=== PATIENT | male | born 1960 | race Caucasian/White ===

== ENCOUNTER 2025-06-16 09:12 | Inpatient (IN) ==
--- NOTE | 2025-06-16 10:09 | Emergency Department Note ---
Impression & Plan Acute renal failure, Acute Lyme disease ED Provider Note Name: MIC HUBER Age: 65 Sex: Male Arrives Via: Walk-In Informant: Patient ED Provider: Doug Stewart MD Chief Complaint: Illness Impression: As per impressions above Medical Decision Making: Pleasant 65-year-old gentleman with a history of hypertension, dyslipidemia for evaluation of severe worsening of 1 week fevers, chills, body aches, dry heaving and not eating. Arrives from PCP office. Patient appears severely dehydrated on arrival. He is ordered 2 L of fluid. Laboratory workup remarkable for significant creatinine elevation. Lyme disease is positive. Other labs consistent with severe dehydration and illness. That said patient does not appear to have severe sepsis or septic shock but rather is primarily just severely dehydrated. He was given fluids as well as some IV antibiotics after obtaining blood cultures. Triage/Nursing Notes reviewed by Me External Chart Review by me: Reviewed a PCP note from earlier today discussing patient's past medical history along with his recent illness. Differential:Viral syndrome, tick borne, pneumonia, influenza, meningitis, urinary tract infection, sepsis, bacteremia, as well as other pathologies. Vital Signs: reviewed and remarkable for no significant abnormalities Interventions: Normal saline bolus 2 L IV, Rocephin IV, doxycycline IV Labs:ED labs Reviewed by me and remarkable for acute renal failure Imagin view chest x-ray as per my interpretation no infiltrate or effusion appreciated EKG:As per my interpretation. Indication weakness. Normal sinus rhythm at 78 bpm with PVC noted. QTc is 399. There is no overt ischemia. There are no previous EKGs for comparison Cardiac/Tele Monitoring: Cardiac Monitoring: An Order was placed for continuous cardiac monitoring. The monitor shows a rate of 70 with a normal sinus rhythm. Consults:Discussed with hospital service who will further evaluate and manage Plan: Disposition:Hospitalization. Condition: Fair History of Present Illness: 65-year-old gentleman arrives for evaluation of illness. Patient notes that he has been sick for the last week. Chills, fevers to 101 and generalized bodyaches. Notes associated nausea with periodic dry heaving. States he has had no appetite. Extreme exhaustion on top of this. Denies any headache, neck pain, nuchal rigidity. Denies any syncope, chest pain, shortness of breath, abdominal pain. He said decreased urination which is dark. No diarrhea. He has really not eaten anything in the last several days. He has a history of Lyme disease few years ago requiring ED visit and fluids. He was seen by his PCP who diagnosed him with dehydration and advised to be evaluated in the ER given the degree. He was started on doxycycline yesterday for presumed Lyme infection. He has had 2 doses. Past Medical History:See Below Home Medications:See Below Allergies:nkda Vitals:Blood Pressure: 111/61, Pulse 78, RR 20, T 36.1C, O2 98% on RA Physical Exam: GENERAL: Patient is ill/dehydrated appearing and in moderate distress. RESPIRATORY: No dyspnea. Clear to auscultation and equal bilaterally. CARDIOVASCULAR: Regular rate and rhythm.No murmur appreciated. GASTROINTESTINAL: Abdomen soft, non-tender, no peritonitis. EXTREMITIES: Normal motion all extremities, no cyanosis, no edema. NEUROLOGIC: Alert and oriented. No focal neurologic deficits appreciated SKIN: No rash, no jaundice, no diaphoresis. PSYCH: Appropriate GCS: 15 ED Course: Times/Reassessments: vastly improved with IV fluids. Doug Stewart MD Past Med/Surg History Problem List (Updated 06/16/25 @ 17:06 by Doug Stewart MD) Acute Lyme disease (Acute) Acute renal failure (Acute) Body aches Fever (Acute) Fatigue Tick bite of ankle Encounter for health maintenance examination in adult Hyperlipidemia Hypertension Prediabetes Medical History (Updated 06/16/25 @ 17:06 by Doug Stewart MD) Inguinal hernia Tubular adenoma of colon Hemorrhoids, internal External hemorrhoids Shingles Surgical History History of colonoscopy Family History Brother Colorectal cancer Mother Diabetes Hypertension Father Prostate cancer Myocardial infarction Denies family history of Ovarian cancer Breast cancer Social History (Updated 10/16/24 @ 09:05 by Rasheeda Alfonso LPN) Smoking Status: Never smoker Tobacco Type: Cigarettes Age Started Using Tobacco: 16; packs per day: 0.5; Cigarettes Per Day: smokes off and on; Second Hand Exposure: No; Do You Dip or Chew Tobacco: No; Hx Alcohol Use: No Hx Substance Use: No Preferred Language: Algerian Visual Impairment: No Limitations Hearing Ability: Normal marital status: Current Living Situation: Spouse current occupational status: employed How many Children do You have Comment: raising grandchild Feels Safe at Home: Yes Childhood Exposure to Second-Hand Smoke: Yes Diet: regular caffeine: Yes Dental Care, Regularly: No Physical Activity Frequency: 1-2 Times per Week Seatbelt Use: always Sunscreen Use: Yes Assistive Devices: Glasses Allergies Allergies Allergy/AdvReac Type Severity Reaction Status Date / Time No Known Allergies Allergy Verified 06/15/25 13:34 Home Meds Home Medications Medication Instructions Recorded Confirmed aspirin 81 mg tablet,delayed 81 mg PO DAILY 01/12/19 06/16/25 release (Marielena Low Dose Aspirin) acetaminophen 500 mg tablet 0 mg PO UD PRN Pain/fever 06/16/25 06/16/25 ibuprofen 200 mg tablet 0 mg PO UD PRN pain/fever 06/16/25 06/16/25 Previous Rx's Medication Instructions Recorded lisinopril 10 mg tablet 10 mg PO DAILY #90 tabs 10/16/24 doxycycline hyclate 100 mg tablet 100 mg PO BID 21 days #42 tabs 06/15/25 Results & Data (ED) Vital Signs Vital Signs - 24 hr 06/16/25 09:30 06/16/25 10:33 06/16/25 10:35 Temperature 36.1 C L Temperature Source Temporal Artery Scan Pulse Rate 78 72 72 Pulse Rate [Apical] Pulse Rhythm Regular Pulse Rhythm [Apical] Pulse Strength [Apical] Respiratory Rate 20 17 Respiratory Effort / Characteristics Non-Labored Spontaneous Respiratory Depth Normal Respiratory Pattern Regular Blood Pressure 111/61 96/70 L Blood Pressure [Left Arm] Blood Pressure Mean 77 77 Blood Pressure Mean [Left Arm] Blood Pressure Position Sitting Pulse Oximetry 98 Oxygen Delivery Method Sepsis Recent Fever Within 48 Hours No Sepsis New/Unexplained Change in Mental Status No Sepsis Action Taken by Nursing No Action Required 06/16/25 11:00 06/16/25 11:01 06/16/25 11:22 Temperature Temperature Source Pulse Rate 70 67 Pulse Rate [Apical] 72 Pulse Rhythm Pulse Rhythm [Apical] Regular Pulse Strength [Apical] Normal Respiratory Rate 16 18 18 Respiratory Effort / Characteristics Non-Labored Spontaneous Respiratory Depth Normal Respiratory Pattern Regular Blood Pressure 115/76 109/89 Blood Pressure [Left Arm] 109/89 Blood Pressure Mean 81 96 Blood Pressure Mean [Left Arm] 95 Blood Pressure Position Pulse Oximetry 96 100 100 Oxygen Delivery Method Room Air Room Air Room Air Sepsis Recent Fever Within 48 Hours Sepsis New/Unexplained Change in Mental Status Sepsis Action Taken by Nursing 06/16/25 11:30 06/16/25 12:00 06/16/25 12:30 Temperature Temperature Source Pulse Rate 72 84 63 Pulse Rate [Apical] Pulse Rhythm Pulse Rhythm [Apical] Pulse Strength [Apical] Respiratory Rate 18 20 18 Respiratory Effort / Characteristics Respiratory Depth Respiratory Pattern Blood Pressure 122/77 126/76 116/77 Blood Pressure [Left Arm] Blood Pressure Mean 93 93 84 Blood Pressure Mean [Left Arm] Blood Pressure Position Pulse Oximetry 98 98 97 Oxygen Delivery Method Room Air Room Air Room Air Sepsis Recent Fever Within 48 Hours Sepsis New/Unexplained Change in Mental Status Sepsis Action Taken by Nursing 06/16/25 13:00 Temperature Temperature Source Pulse Rate 75 Pulse Rate [Apical] Pulse Rhythm Pulse Rhythm [Apical] Pulse Strength [Apical] Respiratory Rate 20 Respiratory Effort / Characteristics Respiratory Depth Respiratory Pattern Blood Pressure 129/97 Blood Pressure [Left Arm] Blood Pressure Mean 110 Blood Pressure Mean [Left Arm] Blood Pressure Position Pulse Oximetry 98 Oxygen Delivery Method Room Air Sepsis Recent Fever Within 48 Hours Sepsis New/Unexplained Change in Mental Status Sepsis Action Taken by Nursing Laboratory Data 06/16/25 09:50 06/16/25 09:50 Lab Results 06/16/25 06/16/25 06/16/25 Range/Units 09:50 11:02 11:08 WBC 13.85 H (4.8-10.8) K/ul RBC 6.63 H (4.70-6.10) M/uL Hgb 20.8 H (14.0-18.0) g/dl Hct 55.8 H (42.0-52.0) % MCV 84.2 (80.0-100.0) fL MCH 31.4 (25.0-34.0) pg MCHC 37.3 H (32.0-36.0) g/dL RDW Std Deviation 40.8 (36.4-46.3) fL RDW Coeff of Linwood 13.2 (11.5-14.5) % Plt Count 121 L (130-400) K/uL MPV 11.1 (9.4-12.4) fL Neutrophils % (Manual) 52 % Lymphocytes % (Manual) 14 % Reactive Lymphs % (Man) 20 % Monocytes % (Manual) 14 % Neutrophils # (Manual) 7.20 H (1.40-6.50) K/uL Total Absolute Neuts 7.20 H (1.4-6.5) K/uL Lymphocytes # (Manual) 1.94 (1.2-3.4) K/uL Reactive Lymphs # 2.77 K/uL Total Abs Lymphocytes 4.71 H (1.2-3.4) K/uL Monocytes # (Manual) 1.94 H (0.11-0.59) K/uL Toxic Vacuolation 1+ APTT 26 (21-31) Seconds PTT Ratio 1.0 Sodium 130 L (136-145) mmol/L Potassium 4.6 (3.5-5.1) mmol/L Chloride 94 L (98-107) mmol/L Carbon Dioxide 23 (21-32) mmol/L Anion Gap 13 H (3-11) BUN 82 H (6-23) mg/dl Creatinine 3.86 H D (0.6-1.4) mg/dl Est Cr Clr Drug Dosing 16.1 ml/min eGFR 16.52 BUN/Creatinine Ratio 21.2 H (10-20) Glucose 153 H (70-99(Fasting)) mg/dl Lactate 1.5 (0.4-2.0) mmol/L Calcium 10.9 H (8.6-10.3) mg/dl Total Bilirubin 0.9 (0.2-1.0) mg/dl AST 30 (13-39) U/L ALT 29 (7-52) U/L Alkaline Phosphatase 85 (34-104) U/L Total Creatine Kinase 49 (30-223) U/L Troponin I High Sens 7.7 (0-20) pg/ml Total Protein 9.0 H (6.0-8.3) gm/dl Albumin 4.1 (3.4-5.0) gm/dl Globulin 4.9 H (2.5-4.0) gm/dl Albumin/Globulin Ratio 0.8 L (0.9-2) Procalcitonin 0.86 H (0-0.5) ng/ml Nasal Screen MRSA (PCR) (Negative) Anaplasma Smear See Comment Babesia Smear See Comment Lyme Disease Screen Positive H (Negative) Lyme Tier 2 IgG Confirm Positive H (Negative) Lyme Tier 2 IgM Confirm Equivocal H (Negative) 06/16/25 Range/Units 11:58 WBC (4.8-10.8) K/ul RBC (4.70-6.10) M/uL Hgb (14.0-18.0) g/dl Hct (42.0-52.0) % MCV (80.0-100.0) fL MCH (25.0-34.0) pg MCHC (32.0-36.0) g/dL RDW Std Deviation (36.4-46.3) fL RDW Coeff of Linwood (11.5-14.5) % Plt Count (130-400) K/uL MPV (9.4-12.4) fL Neutrophils % (Manual) % Lymphocytes % (Manual) % Reactive Lymphs % (Man) % Monocytes % (Manual) % Neutrophils # (Manual) (1.40-6.50) K/uL Total Absolute Neuts (1.4-6.5) K/uL Lymphocytes # (Manual) (1.2-3.4) K/uL Reactive Lymphs # K/uL Total Abs Lymphocytes (1.2-3.4) K/uL Monocytes # (Manual) (0.11-0.59) K/uL Toxic Vacuolation APTT (21-31) Seconds PTT Ratio Sodium (136-145) mmol/L Potassium (3.5-5.1) mmol/L Chloride (98-107) mmol/L Carbon Dioxide (21-32) mmol/L Anion Gap (3-11) BUN (6-23) mg/dl Creatinine (0.6-1.4) mg/dl Est Cr Clr Drug Dosing ml/min eGFR BUN/Creatinine Ratio (10-20) Glucose (70-99(Fasting)) mg/dl Lactate (0.4-2.0) mmol/L Calcium (8.6-10.3) mg/dl Total Bilirubin (0.2-1.0) mg/dl AST (13-39) U/L ALT (7-52) U/L Alkaline Phosphatase (34-104) U/L Total Creatine Kinase (30-223) U/L Troponin I High Sens (0-20) pg/ml Total Protein (6.0-8.3) gm/dl Albumin (3.4-5.0) gm/dl Globulin (2.5-4.0) gm/dl Albumin/Globulin Ratio (0.9-2) Procalcitonin (0-0.5) ng/ml Nasal Screen MRSA (PCR) Negative (Negative) Anaplasma Smear Babesia Smear Lyme Disease Screen (Negative) Lyme Tier 2 IgG Confirm (Negative) Lyme Tier 2 IgM Confirm (Negative) Administered Medications Lactated Ringer's (Lr) 1,000 mls @ 100 mls/hr IV .Q10H INDIO Stop: 06/19/25 14:07 Last Admin: 06/16/25 14:30 Dose: 100 mls/hr Documented By: CEZAR Discontinued Medications Sodium Chloride (Nss) 1,000 mls @ 999 mls/hr IV .Q1H1M INDIO Stop: 06/16/25 12:15 Last Infusion: 06/16/25 12:59 Dose: Infused Documented By: Admin: 06/16/25 11:51 Dose: 999 mls/hr Documented By: Infusion: 06/16/25 11:34 Dose: Infused Documented By: Admin: 06/16/25 10:33 Dose: 999 mls/hr Documented By: CEF Ceftriaxone Sodium (Rocephin) 2,000 mg in 50 mls @ 100 mls/hr IV NOW STA Stop: 06/16/25 11:18 Last Infusion: 06/16/25 12:59 Dose: Infused Documented By: Admin: 06/16/25 11:51 Dose: 100 mls/hr Documented By: BUDDY Doxycycline Hyclate 100 mg/ (Dextrose) 100 mls @ 50 mls/hr IV NOW STA Stop: 06/16/25 12:48 Last Infusion: 06/16/25 14:17 Dose: Infused Documented By: Admin: 06/16/25 11:51 Dose: 50 mls/hr Documented By: BUDDY Imaging Data Radiologist's Impression: Chest X-Ray 06/16/25 10:46 XR chest 1V portable CLINICAL HISTORY: fever, cough, illness COMPARISON STUDY: 01/12/2019 FINDINGS: Size and pulmonary vasculature are normal. Stable hyperexpanded lungs. No consolidation or pleural effusion. No pneumothorax. IMPRESSION: No pneumonia seen. ACT 112: Negative or not required by law. Electronically signed by: Rashawn Carlton M.D. 06/16/2025 11:30 AM Discharge Plan Visit Data Chief Complaint: Illness Stated Complaint: LYMES DISEASE, DEHYDRATED, BODY ACHES, NOT EATING ED Provider: Doug Stewart Discharge Problem: Acute renal failure, Acute Lyme disease Patient Disposition: Admitted As Inpatient Condition: Fair Discharge Instructions Interventions: ED Discharge Assessment Last Done: 06/16/25 14:09 Discharge Problem: Acute renal failure Qualifiers: Acute renal failure type: unspecified Qualified Code(s): N17.9 - Acute kidney failure, unspecified
[2025-06-16 10:27] LABS: Alanine Aminotransferase 29.0 U/L (7-52); Albumin Globulin Ratio 0.8 (0.9-2); Albumin Level 4.1 gm/dl (3.4-5.0); Alkaline Phosphatase 85.0 U/L (34-104); Anion Gap 13.0 (3-11); Bilirubin,Total 0.9 mg/dl (0.2-1.0); Blood Urea Nitrogen 82.0 mg/dl (6-23); Calcium 10.9 mg/dl (8.6-10.3); Carbon Dioxide 23.0 mmol/L (21-32); Chloride 94.0 mmol/L (98-107); Creatinine Clr Calc Pharmacy 16.1 ml/min; Globulin 4.9 gm/dl (2.5-4.0); Glucose 153.0 mg/dl (70-99(Fasting)); Potassium 4.6 mmol/L (3.5-5.1); Sodium 130.0 mmol/L (136-145); Total Protein 9.0 gm/dl (6.0-8.3)
[2025-06-16 10:33] LABS: Partial Thromboplastin Time 26 Seconds (21-31)
[2025-06-16] MEDS: SODIUM CHLORIDE 0.9% 1,000 ML IV SCH (10:33)
[2025-06-16 11:04] LABS: Hematocrit (blood only) 55.8 % (42.0-52.0); Hemoglobin 20.8 g/dl (14.0-18.0); Mean Corpuscular Hemoglobin 31.4 pg (25.0-34.0); Mean Corpuscular Volume 84.2 fL (80.0-100.0); Platelet Count 121 K/uL (130-400); RDW Standard Deviation 40.8 fL (36.4-46.3); Red Blood Count 6.63 M/uL (4.70-6.10); White Blood Count 13.85 K/ul (4.8-10.8)
[2025-06-16 11:19] LABS: Lyme Screen Rflx Confirmation Positive (Negative)
--- NOTE | 2025-06-16 11:31 | XRay Report ---
XR chest 1V portable CLINICAL HISTORY: fever, cough, illness COMPARISON STUDY: 01/12/2019 FINDINGS: Size and pulmonary vasculature are normal. Stable hyperexpanded lungs. No consolidation or pleural effusion. No pneumothorax. IMPRESSION: No pneumonia seen. ACT 112: Negative or not required by law. Electronically signed by: Rashawn Carlton M.D. 06/16/2025 11:30 AM
[2025-06-16 11:32] LABS: ALC (manual) 4.71 K/uL (1.2-3.4); ANC (manual) 7.20 K/uL (1.4-6.5); Reactive Lymphocytes # (manual) 2.77 K/uL; Reactive Lymphocytes % (manual) 20 %; Toxic Vacuolation 1+
[2025-06-16 11:40] LABS: Creatine Kinase 49.0 U/L (30-223)
[2025-06-16] MEDS: cefTRIAXone SODIUM 2,000 MG/50 ML BAG IV STA (11:51)
[2025-06-16] MEDS: DOXYCYCLINE HYCLATE 100 MG in DEXTROSE 5% MINI-B 100 ML IV STA (11:51)
--- NOTE | 2025-06-16 11:59 | Electrocardiogram Report ---
Test Reason : Blood Pressure : */* mmHG Vent. Rate : 78 BPM Atrial Rate : 78 BPM P-R Int : 118 ms QRS Dur : 90 ms QT Int : 350 ms P-R-T Axes : 70 80 82 degrees QTcB Int : 399 ms Sinus rhythm with occasional Premature ventricular complexes Otherwise normal ECG No previous ECGs available Confirmed by Scooby Ritter ([id number]) on 06/16/2025 11:59:13 AM Referred By: Confirmed By: Scooby Ritter
[2025-06-16 12:55] LABS: Lyme Ab IgG 2nd Tier Confirm Positive (Negative); Lyme Ab IgM 2nd Tier Confirm Equivocal (Negative)
[2025-06-16] MEDS ORDERED: ALUMINUM/MAGNESIUM SUSP 30 ML UDC PO PRN (14:08)
[2025-06-16] MEDS ORDERED: POLYETHYLENE (MIRALAX) 17 GM PACK PO PRN (14:08)
[2025-06-16] MEDS ORDERED: ACETAMINOPHEN 325 MG TAB PO PRN (14:08)
[2025-06-16] MEDS ORDERED: ONDANSETRON INJ 2 MG/ML 2 ML VIAL IV PRN (14:08)
[2025-06-16] MEDS ORDERED: MAGNESIUM HYDROXIDE SUSP 30 ML UDC PO PRN (14:08)
--- NOTE | 2025-06-16 14:28 | Hospitalist Progress Note ---
Date of Service June 16, 2025 Assessment & Plan (1) Body aches: (2) Fever: (3) Lyme disease, acute: (4) Fatigue: (5) Hyperlipidemia: (6) Hypertension: (7) Prediabetes: Plan 65 yrs old male PMH of hyperlipidemia, hypertension, prediabetes and tubular adenoma of colon presents to the ED with bodyache, fever, headache and is admitted for Lyme infection with Acute Kidney Injury. 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 Babesia PCR still pending. - Continue Doxycycline 100mg PO BID for Lyme infection which covers infection with anaplasmosis and Ehrlisiosis too. - Possible doxycycline induced bodyache as he had severe bodyache after taking the medication as well. -CXR shows no consolidation on lungs. - Prescribed Morphine 2gm IV 4hrly as needed for pain. - Will monitor the patient. # Acute Kidney Injury a/w Hypovolemia: - MIKE with Creatinine 3.86, BUN 82 possible hypovolemia induced pre-renal MIKE as patient has not been eating and drinking well because of the acute symptoms. Given 2L of NS at ED and continued RL maintenance fluids. - HB- 20.8 AND HCT 55.8%, possible hemoconcentration from hypovolemia. - Ordered CBC, BMP AM. #Hypertension: -Hold Lisinopril home medication because of hypovolemia. #VTE prophylaxis: No Admission and Anticipated Discharge Date Admission Date: June 16, 2025 Subjective Patient is a pleasant 65 yrs old male accompanied with his presents to the ED because of bodyache, fever, headache for which he went to his PCP on 06/15 and they reported the renal abnormalities and suggested him to visit the ED. His bodyache started since Sunday followed by fever and headache from sunday and he took tylenol and ibuprofen for the pain but the pain got progressively worse by each day. His highest temperature that was recorded was 101F. His last decent meal was on Sunday and he has not been able to eat much, eating only cereal milk and milkshakes and whenever he tries to eat anything else he is having heartburn as well. Reports he took 2 doses of Doxycycline and after taking it he laid to the bed and started having severe left leg cramping to the point that he was shouting with pain. He has a H/o past Lyme infection. He has a history of anaplasmosis and reports recent tick bites without red spots. No H/o neck rigidity, fever on presentation, chest pain, shortness of breath. Review of Systems Review of Systems: As per HPI. Physical Exam Physical Exam: Constitutional: No acute distress, cooperative, appears ill. Eyes: Conjunctiva normal, anicteric sclerae ENMT: Normal TM Bilaterally, oropharynx appears erythematous without exudate or tonsillar swelling, dry mucous membranes Neck. Tracheal midline Respiratory: No cough, normal respiratory effort, LCTAB Cardiovascular: Regular rate, regular rhythm, no murmur, no edema Gastrointestinal: soft, non-tender MSK: Normocephalic, atraumatic Skin: No rashes, warm and dry Neuro: awake, moves all extremities, no focal motor deficits Lymphatics: No post-auricular, no preauricular, no submandibular, no submental, no anterior or posterior chain LAD Results & Data Results & Data Vital Signs (Past 12 Hours) Vital Signs Temp Pulse Pulse Resp BP BP Pulse Ox 06/16/25 12:30 63 18 116/77 97 06/16/25 12:00 84 20 126/76 98 06/16/25 11:30 72 18 122/77 98 06/16/25 11:22 67 18 109/89 100 06/16/25 11:01 70 18 115/76 100 06/16/25 11:00 72 16 109/89 96 06/16/25 10:35 72 06/16/25 10:33 72 17 96/70 L 98 06/16/25 09:30 36.1 C L 78 20 111/61 O2 Del Method 06/16/25 12:30 Room Air 06/16/25 12:00 Room Air 06/16/25 11:30 Room Air 06/16/25 11:22 Room Air 06/16/25 11:01 Room Air 06/16/25 11:00 Room Air 06/16/25 10:35 06/16/25 10:33 06/16/25 09:30 Resident Activity Tracking Resident Involvement: Resident Care Provided Care Provided: Adult Hospital Medicine (2) Fever Fever type: unspecified Qualified Code(s): R50.9 - Fever, unspecified
[2025-06-16] MEDS: LACTATED RINGER'S 1,000 ML IV SCH (14:30)
[2025-06-16] MEDS ORDERED: MoRPHine SULFATE 2 MG/ML CARP IV PRN (14:54)
--- NOTE | 2025-06-16 17:34 | History & Physical Report ---
Date of Service June 16, 2025 Assessment & Plan (1) Body aches: (2) Fever: (3) Lyme disease, acute: (4) Fatigue: (5) Hyperlipidemia: (6) Hypertension: (7) Prediabetes: Plan 65 yrs old male PMH of hyperlipidemia, hypertension, prediabetes and tubular adenoma of colon presents to the ED with bodyache, fever, headache and is admitted for Lyme infection with Acute Kidney Injury. 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 Babesia PCR still pending. - Continue Doxycycline 100mg PO BID for Lyme infection which covers infection with anaplasmosis and Ehrlisiosis too. - Possible doxycycline induced bodyache as he had severe bodyache after taking the medication as well. -CXR shows no consolidation on lungs. - Prescribed Morphine 2gm IV 4hrly as needed for pain. - Will monitor the patient. # Acute Kidney Injury a/w Hypovolemia: - MIKE with Creatinine 3.86, BUN 82 possible hypovolemia induced pre-renal MIKE as patient has not been eating and drinking well because of the acute symptoms. Given 2L of NS at ED and continued RL maintenance fluids. - HB- 20.8 AND HCT 55.8%, possible hemoconcentration from hypovolemia. - Ordered CBC, BMP AM. #Hypertension: -Hold Lisinopril home medication because of hypovolemia. #VTE prophylaxis: No Admission and Anticipated Discharge Date Admission Date: June 16, 2025 History of Present Illness Chief Complaint: Patient is a pleasant 65 yrs old male accompanied with his presents to the ED because of bodyache, fever, headache for which he went to his PCP on 06/15 and they reported the renal abnormalities and suggested him to visit the ED. His bodyache started since Sunday followed by fever and headache from sunday and he took tylenol and ibuprofen for the pain but the pain got progressively worse by each day. His highest temperature that was recorded was 101F. His last decent meal was on Sunday and he has not been able to eat much, eating only cereal milk and milkshakes and whenever he tries to eat anything else he is having heartburn as well. Reports he took 2 doses of Doxycycline and after taking it he laid to the bed and started having severe left leg cramping to the point that he was shouting with pain. He has a H/o past Lyme infection. He has a history of anaplasmosis and reports recent tick bites without red spots. No H/o neck rigidity, fever on presentation, chest pain, shortness of breath. Primary Care Provider: Alexys Gillespie DO Allergies Allergy/AdvReac Type Severity Reaction Status Date / Time No Known Allergies Allergy Verified 06/15/25 13:34 Home Medications Medication Instructions Recorded Confirmed Type aspirin 81 mg tablet,delayed 81 mg PO DAILY 01/12/19 06/16/25 History release (Mareilena Low Dose Aspirin) lisinopril 10 mg tablet 10 mg PO DAILY #90 tabs 10/16/24 06/16/25 Rx doxycycline hyclate 100 mg tablet 100 mg PO BID 21 days #42 tabs 06/15/25 06/16/25 Rx acetaminophen 500 mg tablet 0 mg PO UD PRN Pain/fever 06/16/25 06/16/25 History ibuprofen 200 mg tablet 0 mg PO UD PRN pain/fever 06/16/25 06/16/25 History Past Med/Surg History Problem List (Updated 06/16/25 @ 17:06 by Doug Stewart MD) Acute Lyme disease (Acute) Acute renal failure (Acute) Body aches Fever (Acute) Fatigue Tick bite of ankle Encounter for health maintenance examination in adult Hyperlipidemia Hypertension Prediabetes Medical History (Updated 06/16/25 @ 17:06 by Doug Stewart MD) Inguinal hernia Tubular adenoma of colon Hemorrhoids, internal External hemorrhoids Shingles Surgical History History of colonoscopy Family History Brother Colorectal cancer Mother Diabetes Hypertension Father Prostate cancer Myocardial infarction Denies family history of Ovarian cancer Breast cancer Social History (Updated 10/16/24 @ 09:05 by Rasheeda Alfonso LPN) Smoking Status: Former smoker Tobacco Type: Cigarettes Age Started Using Tobacco: 16; packs per day: 0.5; Cigarettes Per Day: smokes off and on; Second Hand Exposure: No; Do You Dip or Chew Tobacco: No; Hx Alcohol Use: No Hx Substance Use: No Preferred Language: Kyrgyz Communication Ability: Effective Visual Impairment: No Limitations Hearing Ability: Normal Manager Personal Required: No Beliefs That Will Affect Care: None marital status: Current Living Situation: Family current occupational status: employed How many Children do You have Comment: raising grandchild Feels Safe at Home: Yes Safety Concerns: Feels Safe At This Time Childhood Exposure to Second-Hand Smoke: Yes Diet: regular caffeine: Yes Dental Care, Regularly: No Physical Activity Frequency: 1-2 Times per Week Seatbelt Use: always Sunscreen Use: Yes Assistive Devices: None Review of Systems Review of Systems: As per HPI Physical Exam Physical Exam: Constitutional: No acute distress, cooperative, appears ill, appears jama, appears thin Eyes: Conjunctiva normal, anicteric sclerae ENMT: Normal TM Bilaterally, oropharynx appears erythematous without exudate or tonsillar swelling, dry mucous membranes Neck. Tracheal midline Respiratory: No cough, normal respiratory effort, LCTAB Cardiovascular: Regular rate, regular rhythm, no murmur, no edema Gastrointestinal: soft, non-tender MSK: Normocephalic, atraumatic Skin: No rashes, warm and dry Neuro: awake, moves all extremities, no focal motor deficits Results & Data Results & Data Vital Signs (Past 12 Hours) Vital Signs Temp Pulse Pulse Resp BP BP Pulse Ox 06/16/25 17:14 37.0 C 68 17 130/72 97 06/16/25 16:00 79 21 117/78 98 06/16/25 15:00 83 22 115/76 96 06/16/25 14:30 80 20 136/79 97 06/16/25 14:00 81 20 124/82 99 06/16/25 13:00 75 20 129/97 98 06/16/25 12:30 63 18 116/77 97 06/16/25 12:00 84 20 126/76 98 06/16/25 11:30 72 18 122/77 98 06/16/25 11:22 67 18 109/89 100 06/16/25 11:01 70 18 115/76 100 06/16/25 11:00 72 16 109/89 96 06/16/25 10:35 72 06/16/25 10:33 72 17 96/70 L 98 06/16/25 09:30 36.1 C L 78 20 111/61 O2 Del Method 06/16/25 17:14 Room Air 06/16/25 16:00 Room Air 06/16/25 15:00 Room Air 06/16/25 14:30 06/16/25 14:00 Room Air 06/16/25 13:00 Room Air 06/16/25 12:30 Room Air 06/16/25 12:00 Room Air 06/16/25 11:30 Room Air 06/16/25 11:22 Room Air 06/16/25 11:01 Room Air 06/16/25 11:00 Room Air 06/16/25 10:35 06/16/25 10:33 06/16/25 09:30 Code Status & VTE Plan VTE Prophylaxis Plan VTE Prophylaxis will be ordered: No Supervising Physician Co-Signing Physician Notes I personally examined the patient and verified craig points of history and exam, discussed case, and agree with decision making and plan documented by Dr. Feliz. Patient is a 65-year-old male with past medical history of hypertension, hyperlipidemia, and prediabetes presenting with multiple days of fever, body aches, and overall malaise. He was seen at his PCPs office 06/15/2025 and started on doxycycline for presumed tick borne illness. Patient on admission for dehydration, acute renal failure, in setting of presumed lyme disease with equivocal IgM. On exam patient appears comfortable, non diaphoretic, conjunctiva clear, mucosa moist, non-labored breathing, lungs clear to auscultation bilaterally, no rales/rhonchi/wheezing, heart with regular rate and rhythm, no murmur appreciated, bowel sounds present and no tenderness in the abdomen, lower extremities without edema, no calf tenderness. Patient on doxcycline and fluids. VSS. Monitor kidney function closely and avoid nephrotoxins. Resident Activity Tracking Resident Involvement: Resident Care Provided Care Provided: Adult Hospital Medicine (2) Fever Fever type: unspecified Qualified Code(s): R50.9 - Fever, unspecified
[2025-06-16 18:48] LABS: Anion Gap 10.0 (3-11); Blood Urea Nitrogen 67.0 mg/dl (6-23); Calcium 9.4 mg/dl (8.6-10.3); Carbon Dioxide 20.0 mmol/L (21-32); Chloride 103.0 mmol/L (98-107); Creatinine Clr Calc Pharmacy 29.4 ml/min; Glucose 114.0 mg/dl (70-99(Fasting)); Potassium 4.1 mmol/L (3.5-5.1); Sodium 133.0 mmol/L (136-145)
[2025-06-16] MEDS: DOXYCYCLINE HYCLATE 100 MG CAP PO SCH (20:50)
[2025-06-16] MEDS: MELATONIN 3 MG TAB PO PRN (20:50)
[2025-06-17 07:05] LABS: Anion Gap 7.0 (3-11); Blood Urea Nitrogen 49.0 mg/dl (6-23); Calcium 8.9 mg/dl (8.6-10.3); Carbon Dioxide 22.0 mmol/L (21-32); Chloride 107.0 mmol/L (98-107); Creatinine Clr Calc Pharmacy 47.6 ml/min; Potassium 3.9 mmol/L (3.5-5.1); Sodium 136.0 mmol/L (136-145)
[2025-06-17 07:12] LABS: Hematocrit (blood only) 44.7 % (42.0-52.0); Hemoglobin 16.0 g/dl (14.0-18.0); Mean Corpuscular Hemoglobin 30.0 pg (25.0-34.0); Mean Corpuscular Volume 83.9 fL (80.0-100.0); Platelet Count 117 K/uL (130-400); RDW Standard Deviation 40.4 fL (36.4-46.3); Red Blood Count 5.33 M/uL (4.70-6.10); White Blood Count 10.46 K/ul (4.8-10.8)
[2025-06-17] MEDS: ASPIRIN 81 MG ECTAB PO SCH (08:22)
[2025-06-17 08:47] LABS: ALC (manual) 5.02 K/uL (1.2-3.4); ANC (manual) 4.08 K/uL (1.4-6.5); Polychromasia 1+; Reactive Lymphocytes # (manual) 2.20 K/uL; Reactive Lymphocytes % (manual) 21 %
[2025-06-17] MEDS ORDERED: MoRPHine SULFATE 4 MG/ML 1 ML CARP\\VIAL IV PRN (09:06)
[2025-06-17 10:27] LABS: Smudge Cells Present
--- NOTE | 2025-06-17 10:54 | Hospitalist Progress Note ---
Date of Service June 17, 2025 Assessment & Plan (1) Body aches: (2) Fever: (3) Lyme disease, acute: (4) Fatigue: (5) Hyperlipidemia: (6) Hypertension: (7) Prediabetes: Plan 65 yrs old male PMH of hyperlipidemia, hypertension, prediabetes and tubular adenoma of colon presents to the ED with bodyache, fever, headache and is admitted for Lyme infection with Acute Kidney Injury. 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 - Lyme IgG positive with IgM equivocal with past history of lyme infection with negative Anaplasma and Babesia smear. Babesia PCR still pending. - Continue Doxycycline 100mg PO BID for Lyme infection which covers infection with anaplasmosis and Ehrlisiosis too. - Possible doxycycline induced bodyache as he had severe bodyache after taking the medication as well. -CXR shows no consolidation on lungs. - Prescribed Morphine 2gm IV 4hrly as needed for pain. - Possible discharge home tomorrow if he continues to feel well. # Acute Kidney Injury a/w Hypovolemia: - MIKE with Creatinine 3.86-> 1.31, BUN 82->49 possible hypovolemia induced pre- renal MIKE as patient has not been eating and drinking well because of the acute symptoms. Given 2L of NS at ED and continued RL maintenance fluids. - HB- 20.8 AND HCT 55.8%, possible hemoconcentration from hypovolemia. - Ordered CBC, BMP AM. #Hypertension: -Hold Lisinopril home medication because of hypovolemia. #VTE prophylaxis: No Admission and Anticipated Discharge Date Admission Date: June 16, 2025 Supervising Physician Co-Signing Physician Notes I personally examined the patient and verified craig points of history and exam, discussed case, and agree with decision making and plan documented by Dr. Feliz. Recovery of MIKE with hydration. Patient exhausted. Continue doxycycline and consider discharge tomorrow if patient continues clinical improvement. Subjective Patient was sleeping comfortably on bed this morning, He is relieved that his severe bodyache, headache and fever is all resolved but he does reports he still feels tired and wishes his energy would be back to normal again. No H/o fever, headache, chest pain, bradycardia, hematuria. Review of Systems Review of Systems: As per HPI Physical Exam Physical Exam: Constitutional: No acute distress, cooperative, appears ill, appears jama, appears thin Eyes: Conjunctiva normal, anicteric sclerae ENMT: Normal TM Bilaterally, oropharynx appears erythematous without exudate or tonsillar swelling, dry mucous membranes Neck. Tracheal midline Respiratory: No cough, normal respiratory effort, LCTAB Cardiovascular: Regular rate, regular rhythm, no murmur, no edema Gastrointestinal: soft, non-tender MSK: Normocephalic, atraumatic Skin: No rashes, warm and dry Neuro: awake, moves all extremities, no focal motor deficits Results & Data Results & Data Vital Signs (Past 12 Hours) Vital Signs Temp Pulse Resp BP Pulse Ox O2 Del Method 06/17/25 07:48 36.8 C 60 18 134/82 96 Room Air 06/16/25 23:31 37.1 C 65 16 116/76 95 Room Air Resident Activity Tracking Resident Involvement: Resident Care Provided Care Provided: Adult Hospital Medicine (2) Fever Fever type: unspecified Qualified Code(s): R50.9 - Fever, unspecified
[2025-06-17 22:58] VITALS: O2SAT 96
[2025-06-18 07:32] VITALS: RESP 18; TEMP 98.2
[2025-06-18 07:33] LABS: Hematocrit (blood only) 41.2 % (42.0-52.0); Hemoglobin 15.3 g/dl (14.0-18.0); Mean Corpuscular Hemoglobin 31.2 pg (25.0-34.0); Mean Corpuscular Volume 83.9 fL (80.0-100.0); Platelet Count 160 K/uL (130-400); RDW Standard Deviation 39.3 fL (36.4-46.3); Red Blood Count 4.91 M/uL (4.70-6.10); White Blood Count 11.16 K/ul (4.8-10.8)
[2025-06-18 08:07] LABS: Anion Gap 6.0 (3-11); Blood Urea Nitrogen 27.0 mg/dl (6-23); Calcium 9.0 mg/dl (8.6-10.3); Carbon Dioxide 25.0 mmol/L (21-32); Chloride 106.0 mmol/L (98-107); Creatinine Clr Calc Pharmacy 67.0 ml/min; Potassium 4.4 mmol/L (3.5-5.1); Sodium 137.0 mmol/L (136-145)
[2025-06-18 08:55] LABS: Immature Granulocytes # (auto) 0.04 K/uL (0.01-0.20); Immature Granulocytes % (auto) 0.4 %
--- NOTE | 2025-06-18 09:55 | Discharge Summary ---
Date of Service June 18, 2025 Admission HPI Per Admitting Provider Patient is a pleasant 65 yrs old male accompanied with his presents to the ED because of bodyache, fever, headache for which he went to his PCP on 06/15 and they reported the renal abnormalities and suggested him to visit the ED. His bodyache started since Sunday followed by fever and headache from sunday and he took tylenol and ibuprofen for the pain but the pain got progressively worse by each day. His highest temperature that was recorded was 101F. His last decent meal was on Sunday and he has not been able to eat much, eating only cereal milk and milkshakes and whenever he tries to eat anything else he is having heartburn as well. Reports he took 2 doses of Doxycycline and after taking it he laid to the bed and started having severe left leg cramping to the point that he was shouting with pain. He has a H/o past Lyme infection. He has a history of anaplasmosis and reports recent tick bites without red spots. No H/o neck rigidity, fever on presentation, chest pain, shortness of breath. Admission Exam Per Admitting Provider Constitutional: No acute distress, cooperative, appears ill, appears jama, appears thin Eyes: Conjunctiva normal, anicteric sclerae ENMT: Normal TM Bilaterally, oropharynx appears erythematous without exudate or tonsillar swelling, dry mucous membranes Neck. Tracheal midline Respiratory: No cough, normal respiratory effort, LCTAB Cardiovascular: Regular rate, regular rhythm, no murmur, no edema Gastrointestinal: soft, non-tender MSK: Normocephalic, atraumatic Skin: No rashes, warm and dry Neuro: awake, moves all extremities, no focal motor deficits Principal Diagnosis lyme infection with MIKE Discharge Exam Constitutional: No acute distress, cooperative, appears ill, appears jama, appears thin Eyes: Conjunctiva normal, anicteric sclerae ENMT: Normal TM Bilaterally, oropharynx appears erythematous without exudate or tonsillar swelling, dry mucous membranes Neck. Tracheal midline Respiratory: No cough, normal respiratory effort, LCTAB Cardiovascular: Regular rate, regular rhythm, no murmur, no edema Gastrointestinal: soft, non-tender MSK: Normocephalic, atraumatic Skin: No rashes, warm and dry Neuro: awake, moves all extremities, no focal motor deficits Discharge Data Allergies Allergy/AdvReac Type Severity Reaction Status Date / Time No Known Allergies Allergy Verified 06/15/25 13:34 Consultations 06/16/25 11:22 ED Decision to Admit Stat Hospital Course (1) Body aches: (2) Fever: (3) Lyme disease, acute: (4) Fatigue: (5) Hyperlipidemia: (6) Hypertension: (7) Prediabetes: Plan 65 yrs old male PMH of hyperlipidemia, hypertension, prediabetes and tubular adenoma of colon presents to the ED with bodyache, fever, headache and is admitted for Lyme infection with Acute Kidney Injury. 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 - Lyme IgG positive with IgM equivocal with past history of lyme infection with negative Anaplasma and Babesia smear. Babesia PCR still pending. - Continue Doxycycline 100mg PO BID for Lyme infection for total course of 21 days. - Possible doxycycline induced bodyache as he had severe bodyache after taking the medication as well. Discussed about side effects of doxycycline such as photosensitivity, gastrointestinal upset, tooth discoloration. -CXR shows no consolidation on lungs. - Given Morphine 2gm IV 4hrly as needed for pain. - Discussed with patient that he will have extra medications left from what he was prescribed from his PCP as he had doxycycline given at the hospital. - Home discharge with follow up recommended with the PCP for pending babesiosis labs and monitoring of his condition. # Acute Kidney Injury a/w Hypovolemia: - MIKE with Creatinine 3.86-> 0.93, BUN 82->27 possible hypovolemia induced pre- renal MIKE as patient has not been eating and drinking well because of the acute symptoms. Given 2L of NS at ED and continued RL maintenance fluids. - HB- 20.8->15.3 AND HCT 55.8%->41.2% possible hemoconcentration from hypovolemia. #Hypertension: -Hold Lisinopril home medication because of hypovolemia. Can continue at home. Total Time Total Time Spent Total Time Spent (In Minutes): See attending attestation Discharge Plan Discharge Items Patient Disposition: Home - Self-Care Reason For Visit: LYME INFECTION WITH MIKE Discharge Diagnosis: Lyme Infection with MIKE Condition on Discharge: Fair Activity: Per Instructions section Non-emergency contact: Primary Care Provider Call non-emergency contact if: your symptoms worsen and your temperature is above 101 Follow-up/Referrals: Alexys Gillespie DO [Primary Care Provider] - 06/25/25 11:00 am Diet: Regular Addtl Attending Provider Instructions: You were admitted to [facility] because of bodyache, fever, headache and dehydration associated with Lyme infection and dehydration. With regard to your Lyme infection we continued the antibiotics "Doxycycline" which was prescribed by your PCP as your lyme test was positive and in regards to the dehydration with infection which caused acute kidney injury we rehydrated you with IV fluids. We also tested you for other tick infection which was n egative except Babesiois which is still pending. We also did a Chest Xray on you but there was no signs of infection such as pneumonia. You got a lot better with your symptoms and your kidney results resolved back to normal, that's when you were deemed safe to discharge. You will continue the same medication from the hospital for Lyme infection. 1) You will continue the same antibiotics called "Doxycycline" 100mg BID which was prescribed from your PCP. Also for fever you can take Tylenol as needed. Please make sure you follow up with your PCP within 1-2 weeks as your Babesiosis test results is still pending and to make sure your condition continues to be stable. Thank you for choosing [facility] as your healthcare provider Pending Studies at Discharge: Yes (Babesiosis PCR ) Stand-Alone Forms: My [facility], Smoking Cessation Medications and DC Order Prescriptions: Continued doxycycline hyclate 100 mg tablet 100 mg PO BID 21 Days Qty: 42 0RF lisinopril 10 mg tablet 10 mg PO DAILY Qty: 90 3RF aspirin [Marielena Low Dose Aspirin] 81 mg Tablet,Delayed Release (Dr/Ec) 81 mg PO DAILY Patient Comments: 06/16- otc unable to verify acetaminophen 500 mg Tablet 0 mg PO UD PRN (Reason: Pain/fever) Patient Comments: 06/16- otc unable to verify Discontinued ibuprofen 200 mg Tablet 0 mg PO UD PRN (Reason: pain/fever) Patient Comments: 06/16- otc unable to verify Discharge Orders: Discharge Order (Routine); Ordered 06/18/25 Ordered By: Fernanda Feliz Admission Data Admit Date/Time: 06/16/25 13:29 Attending Provider: Chinyere Bruce Admit Provider: Fernanda Feliz Primary Care Provider: Alexys Gillespie Other Providers: Laureano Anand Other Interventions: Discharge Summary Assessment (RN) Last Done: 06/18/25 10:15 Supervising Physician Co-Signing Physician Notes I personally examined the patient and verified craig points of history and exam, discussed case, and agree with decision making and plan documented by Dr. Feliz. Patient is a 65-year-old male with past medical history pertinent for hypertension, prediabetes, and hyperlipidemia on admission for acute renal failure in setting of tickborne illness and dehydration. MIKE rapidly improved with aggressive hydration. Patient's symptoms improved on doxycycline. Lyme testing positive on western blot. Patient discharged home to complete 21 day course of doxycycline, discussed possible photosensitivity and possible GI side effects. He will followup with PCP as recommended. Total attending time 32 minutes Resident Activity Tracking Resident Involvement: Resident Care Provided Care Provided: Adult Hospital Medicine
[2025-06-18 10:17] VITALS: BP 130/72; PULSE 68
== END 2025-06-18 11:15 | disposition home or self-care (01) | DRG 868 ==
LOC: ED 09:12 → EDINP 13:29 → 3W 14:09
DX: A69.20 Lyme disease, unspecified; I10 Essential (primary) hypertension; B60.00 Babesiosis, unspecified; N17.9 Acute kidney failure, unspecified; Z87.891 Personal history of nicotine dependence; E78.5 Hyperlipidemia, unspecified; R73.03 Prediabetes; A79.82 Anaplasmosis [A. phagocytophilum]; E86.1 Hypovolemia; Z79.82 Long term (current) use of aspirin; Z79.899 Other long term (current) drug therapy